=== PATIENT | male | born 1975 | race Caucasian/White ===

== ENCOUNTER 2017-12-08 05:31 | Observation (INO) | payer OTHER ==
[2017-12-08] MEDS: FAMOTIDINE 20 MG INJ IV (05:54)
[2017-12-08] MEDS: LIDOCAINE/MYLANTA 40 ML BTL PO (05:54)
[2017-12-08] MEDS: ONDANSETRON 4 MG INJ IV (05:54)
[2017-12-08] MEDS: morphine 4 MG/ML VIAL IV (05:54)
[2017-12-08] MEDS: SOD CHLORIDE 0.9% 500 ML IV (06:15)
[2017-12-08 06:18] LABS: ADD MAN DIFF? NO
[2017-12-08 06:27] LABS: WHITE BLOOD COUNT 9.2 10^3/ul (4.8-10.8)
[2017-12-08 06:27] LABS: BASOPHILS % 0.4 % (0.0-2.0); EOSINOPHILS # 0.2 10^3/ul (0.0-0.5); EOSINOPHILS % 1.7 % (0.0-7.0); HEMATOCRIT 45.2 % (42.0-52.0); HEMOGLOBIN 16.1 g/dl (14.0-18.0); LYMPHOCYTES # 2.5 10^3/ul (0.8-2.9); LYMPHOCYTES % 26.7 % (15.0-51.0); MEAN CORPUSCULAR HEMOGLOBIN 31.2 pg (29.0-33.0); MEAN CORPUSCULAR HGB CONC 35.6 g/dl (32.0-37.0); MEAN CORPUSCULAR VOLUME 87.6 fl (82.0-101.0); MEAN PLATELET VOLUME 11.4 fl (7.4-10.4); MONOCYTE # 0.6 10^3/ul (0.3-0.9); MONOCYTES % 6.4 % (0.0-11.0); NEUTROPHIL # 5.9 10^3/ul (1.6-7.5); NEUTROPHILS % 64.3 % (39.0-77.0); PLATELET COUNT 170 10^3/UL (140-415); RED BLOOD COUNT 5.16 10^6/ul (4.70-6.10); RED CELL DISTRIBUTION WIDTH 12.8 % (11.5-14.5)
[2017-12-08 06:34] LABS: ADD UMIC NO; UR ASCORBIC ACID NEGATIVE (NEGATIVE); UR BILIRUBIN (Dip) NEGATIVE (NEGATIVE); UR BLOOD (Dip) NEGATIVE (NEGATIVE); UR CLARITY CLEAR (CLEAR); UR COLOR YELLOW (YELLOW); UR GLUCOSE (Dip) NEGATIVE (NEGATIVE); UR KETONES (Dip) NEGATIVE (NEGATIVE); UR LEUKOCYTE ESTERASE (Dip) NEGATIVE Leu/ul (NEGATIVE); UR NITRITE (Dip) NEGATIVE (NEGATIVE); UR SPECIFIC GRAVITY (Dip) 1.024 (1.003-1.030); UR TOTAL PROTEIN (Dip) NEGATIVE (NEGATIVE); UR UROBILINOGEN (Dip) NEGATIVE (NEGATIVE)
[2017-12-08] MEDS ORDERED: NITROGLYCERIN (SL) 0.4 MG TAB SL (07:00)
[2017-12-08] MEDS: ASPIRIN 81 MG TAB PO (07:05)
[2017-12-08] MEDS: NITROGLYCERIN 2% 1 GM OINT PKT TD (07:06)
[2017-12-08 07:35] LABS: ALANINE AMINOTRANSFERASE 62 IU/L (13-69); ALBUMIN 4.4 g/dl (3.3-4.9); ALBUMIN/GLOBULIN RATIO 1.46; ALKALINE PHOSPHATASE 94 IU/L (42-121); ANION GAP 15 (8-16); ASPARTATE AMINO TRANSFERASE 27 IU/L (15-46); BLOOD UREA NITROGEN 19 mg/dl (7-20); CALCIUM 9.4 mg/dl (8.4-10.2); CARBON DIOXIDE 24 mmol/L (21-31); CHLORIDE 110 mmol/L (97-110); CREATININE 0.85 mg/dl (0.61-1.24); GLUCOSE 106 mg/dl (70-220); LIPASE 101 U/L (23-300); POTASSIUM 4.1 mmol/L (3.5-5.1); SODIUM 145 mmol/L (135-144); TOTAL PROTEIN 7.4 g/dl (6.1-8.1)
[2017-12-08 07:47] LABS: TROPONIN-I < 0.012 ng/ml (0.00-0.12)
[2017-12-08] MEDS ORDERED: ACETAMINOPHEN 325 MG TAB PO (10:00)
[2017-12-08] MEDS ORDERED: ONDANSETRON 4 MG INJ IV (10:00)
[2017-12-08] MEDS: SOD CHLORIDE 0.9% 1,000 ML IV (10:23)
[2017-12-08] MEDS: ENOXAPARIN 40 MG/0.4 ML SYG SC (10:30)
[2017-12-08] MEDS ORDERED: ZOLPIDEM 5 MG TAB PO (10:30)
[2017-12-08] MEDS: PANTOPRAZOLE 40 MG INJ IV (10:30)
[2017-12-08] MEDS ORDERED: NACL 0.9% 3 ML SYG IV (10:30)
[2017-12-08] MEDS ORDERED: morphine 2 MG INJ IV (10:30)
[2017-12-08] MEDS ORDERED: DOCUSATE SODIUM 100 MG CAP PO (10:30)
[2017-12-08 11:55] LABS: CREATINE KINASE 64 IU/L (23-200)
[2017-12-08 11:58] LABS: CHOLESTEROL 171 mg/dl (100-200)
[2017-12-08 11:58] LABS: CHOL/HDL RATIO 4.8 RATIO; HDL CHOLESTEROL 35 mg/dl (27-67); LDL CHOLESTEROL,CALCULATED 110 mg/dl; TRIGLYCERIDES 132 mg/dl (0-149)
[2017-12-08 12:04] LABS: D-DIMER 369.22 ng/ml (<460)
[2017-12-08 12:05] LABS: CK INDEX 1.2
[2017-12-08 12:09] LABS: CK-MB 0.77 ng/ml (0.0-2.4); TROPONIN-I < 0.012 ng/ml (0.00-0.12)
[2017-12-08] MEDS: REGADENOSON 0.4 MG/5 ML SYG (15:58)
[2017-12-08] MEDS: NICOTINE (21 MG/24 HR) PATCH TRANSDERM (16:22)
[2017-12-08 19:07] LABS: CREATINE KINASE 66 IU/L (23-200)
[2017-12-08 19:20] LABS: CK INDEX 1.1
[2017-12-08 19:22] LABS: CK-MB 0.72 ng/ml (0.0-2.4); TROPONIN-I < 0.012 ng/ml (0.00-0.12)
[2017-12-08 23:04] LABS: AMPHETAMINE/METHAMPHETAMINE Negative (NEGATIVE); BARBITURATES Negative (NEGATIVE); BENZODIAZEPINES Negative (NEGATIVE); CANNABINOIDS Negative (NEGATIVE); COCAINE Negative (NEGATIVE); OPIATES Negative (NEGATIVE)
[2017-12-09] MEDS ORDERED: INFLUENZA VIRUS VACCINE 0.5 ML (DISPENSING) IM* (09:00)
[2017-12-09] MEDS ORDERED: ASPIRIN 81 MG TAB PO (09:00)
== END 2017-12-08 22:39 | disposition home or self-care (01) ==
LOC: E/R 05:31 → MS3 09:57
DX: R07.9 Chest pain, unspecified (principal); E78.5 Hyperlipidemia, unspecified; I51.7 Cardiomegaly; F17.210 Nicotine dependence, cigarettes, uncomplicated; Z82.49 Family history of ischemic heart disease and other diseases of the circulatory system; Z79.82 Long term (current) use of aspirin
CPT/HCPCS: 36415; 71045; 76705; 78452; 80053; 80061; 80307; 81003; 82550; 82553; 83036; 83690; 84484; 85025; 85378; 93005; 93017; 93306; 96374; 96375; 99285-25

== ENCOUNTER 2018-05-11 12:55 | Emergency (ER) | payer OTHER ==
[2018-05-11 13:32] LABS: ADD MAN DIFF? NO
[2018-05-11] MEDS: MECLIZINE 12.5 MG TAB PO (13:32)
[2018-05-11 13:36] LABS: BASOPHILS % 0.3 % (0.0-2.0); EOSINOPHILS # 0.1 10^3/ul (0.0-0.5); HEMOGLOBIN 15.5 g/dl (14.0-18.0); LYMPHOCYTES # 1.5 10^3/ul (0.8-2.9); LYMPHOCYTES % 20.5 % (15.0-51.0); MEAN CORPUSCULAR HEMOGLOBIN 30.3 pg (29.0-33.0); MEAN CORPUSCULAR HGB CONC 34.4 g/dl (32.0-37.0); MEAN CORPUSCULAR VOLUME 88.1 fl (82.0-101.0); MEAN PLATELET VOLUME 11.2 fl (7.4-10.4); MONOCYTE # 0.5 10^3/ul (0.3-0.9); MONOCYTES % 6.2 % (0.0-11.0); NEUTROPHIL # 5.2 10^3/ul (1.6-7.5); NEUTROPHILS % 71.6 % (39.0-77.0); PLATELET COUNT 173 10^3/UL (140-415); RED BLOOD COUNT 5.11 10^6/ul (4.70-6.10); RED CELL DISTRIBUTION WIDTH 12.6 % (11.5-14.5)
[2018-05-11 13:36] LABS: WHITE BLOOD COUNT 7.2 10^3/ul (4.8-10.8)
[2018-05-11 13:56] LABS: INR 0.82; PROTIME 11.4 Sec (11.9-14.9); PT RATIO 0.9
[2018-05-11 13:57] LABS: PARTIAL THROMBOPLASTIN TIME 35.7 Sec (25.0-35.0)
[2018-05-11 14:01] LABS: ANION GAP 12 (8-16); BLOOD UREA NITROGEN 17 mg/dl (7-20); CALCIUM 9.4 mg/dl (8.4-10.2); CARBON DIOXIDE 27 mmol/L (21-31); CHLORIDE 106 mmol/L (97-110); CREATININE 0.72 mg/dl (0.61-1.24); GLUCOSE 104 mg/dl (70-220); POTASSIUM 3.9 mmol/L (3.5-5.1); SODIUM 141 mmol/L (135-144)
[2018-05-11] MEDS: IBUPROFEN 600 MG TAB PO (14:47)
== END 2018-05-11 14:55 | disposition home or self-care (01) ==
LOC: E/R 12:55
DX: R42 Dizziness and giddiness (principal); I10 Essential (primary) hypertension; F17.210 Nicotine dependence, cigarettes, uncomplicated; Z79.82 Long term (current) use of aspirin
CPT/HCPCS: 36415; 70450; 80048; 85025; 85610; 85730; 93005; 99285-25